=== PATIENT | male | born 1935 | race Caucasian/White ===

== ENCOUNTER 2023-05-09 15:37 | Emergency (ER) | payer OTHER, SELFPAY ==
[2023-05-09 15:39] VITALS: BP 135/71
[2023-05-09 16:12] LABS: % Basophils 0.4 % (0-2); % Eosinophils 1.4 % (0-6); % Immature Granulocytes 0.4 % (0-0.5); % Lymphocytes 20.7 % (20.5-51.1); % Monocytes 14.3 % (1.7-9.3); % Neutrophils 62.8 % (42.2-75.2); Absolute Eosinophils 0.1 10^3/uL (0-0.7); Absolute Lymphocytes 1.7 10^3/uL (1.2-3.4); Absolute Monocytes 1.2 10^3/uL (0.1-0.6); Absolute Neutrophils 5.3 10^3/uL (1.4-6.5); Hematocrit 38.7 % (39.0-52.0); Hemoglobin 13.5 g/dL (13.0-18.0); Mean Corp Hgb Conc. 34.9 g/dL (33.0-37.0); Mean Corpuscular Hgb 32.1 pg (27.0-31.0); Mean Corpuscular Volume 92.1 fL (80.0-94.0); Mean Platelet Volume 9.1 fL (7.4-10.4); Nucleated Red Blood Cells % 0 % (-); Platelet Count 373 10^3/uL (130-400); Red Cell Dist. Width 11.3 % (11.5-14.5); White Blood Cell Count 8.4 10^3/uL (4.8-10.8)
[2023-05-09 16:27] LABS: ALT (SGPT) 17 U/L (0-50); AST (SGOT) 23 U/L (17-59); Albumin 3.7 g/dl (3.5-5.0); Alkaline Phosphatase 194 U/L (38-126); Blood Urea Nitrogen 33 mg/dl (9-20); Calcium 9.1 mg/dl (8.4-10.2); Carbon Dioxide 28 mmol/L (22-30); Chloride 99 mmol/L (98-107); Glucose 122 mg/dl (70-99); Lipase 122 U/L (23-300); Potassium 4.4 mmol/L (3.5-5.1); Sodium 133 mmol/L (135-145); Total Bilirubin 1.4 mg/dl (0.2-1.3); Total Protein 6.9 g/dl (6.3-8.2); eGFR 58.53
[2023-05-09 16:30] LABS: COVID-19 Antigen Negative (Negative)
--- NOTE | 2023-05-09 17:15 | ED.GENMED ---
History of Present Illness
General
Chief Complaint: Weakness
Source: family
Exam Limitations: non verbal-adult
Time Seen by Provider: 05/09/23 16:40
Nursing documentation reviewed up to this point in time: agreed with
Travel History
Have you had any contact with someone who has COVID-19?: No
Do you have any symptoms of coronavirus? Fever > 100 degrees, chills, cough, shortness of breath, sore throat, loss of taste or smell, muscle aches, or headache?: No
History of Present Illness
History of Present Illness:
Patient is an 87-year-old male with a history of MD, cardiac stenting, hypertension, hyperlipidemia, GERD, TIA and expressive aphasia since age 80, patient is mostly nonverbal, can shake his head yes or no but most of the time does write down when
he wants to communicate
Presents after has witnessed him not eating for the last 2 days. She says that all began 3 days ago when she came home from being out and he was pale and laying wrapped in a towel in his bed. She says she has never seen him like that. It
looked as if he was in the shower and came out and lay down. She says he was communicative, opening his eyes and his baseline mental status but he just seemed wiped out. He was not found to have any facial asymmetry or focal weakness. She took
his blood pressure which was okay. She got into our juice and he drank. But then ever since then he really has not wanted to eat. Patient is pretty habitual as far as his eating goes and will eat 3 meals a day, he always has Cheerios, Estonian and
orange juice for breakfast and has had that for 47 years. But he has not wanted to eat that which is very unusual. He has been sleeping more than usual. Otherwise he is his baseline communication which is minimal. He has been able to ambulate.
She tried to get him to drink the Ensure but he is only had some sips. He is never vomited. He asked to go to the doctor today. Patient's says that she thinks may be something happened to him 2 days ago, as if maybe he had a stroke.
He does not seem to be in any pain. He also is not suspected to be constipated though does not seem like it is reliable to asked the patient when the last time he moved his bowels was.
Past History
Past History
ED Past Medical History: HTN, Hypercholesterolemia, MD and Other (Chronic expressive aphasia)
ED Past Surgical History: Cardiac (Stent X1)
Social History
Tobacco: Non-smoker
Alcohol: Occasional
Drug: None
Personal:
Living: with family
Review of Systems
Review of Systems
Allergies reviewed?: Yes
All Other Systems: Not applicable
Phy Exam
Physical Exam
Physical Exam:
GENERAL: Alert , in no apparent distress, nontoxic appearing, pleasant, answers yest to most questions and then shaes head no
HEAD: NCAT
EYE: pupils equal and reactive, no nystagmus, no photophobia
NECK: Supple,full rom, nontender
ENT: o/p clr, mmm.
CARDIAC: Regular rate and rhythm . no edema
LUNGS: Clear breath sounds bilaterally, no acute respiratory distress, no wheezes/rales/rhonchi
ABDOMEN: Soft, without focal tenderness, no r/g, no cvat
NEUROLOGICAL: Alert and orientedx 4, cn intact, no facial asymmetry, 5/5 strength in UE/LE, sensation intact, romberg neg, ambulates without assistance, neg pronator drift
SKIN: Warm and dry, skin intact.
MUSCULOSKELETAL: No edema, well perfused.
PSYCH: Normal and appropriate interaction.
Course
Orders/Labs/Results
Orders:
Orders
05/09/23 15:44
EKG [Electrocardiogram (*1)] Urgent
Reason for Study: Fatigue / Weakness
EKG- Treatment ONCE
05/09/23 15:59
COVID-19 Antigen Urgent
Source: Nasal Swab
Influenza A+B Rapid Molecular Urgent
CHERYL Source: Nasal Swab
Specimen Description:
05/09/23 16:02
CBC/With Diff [Complete Blood Count/With Diff] Urgent
CMP [Comprehensive Metabolic Panel] Urgent
Lipase Urgent
05/09/23 17:10
Add On- LAB Urgent
Tests Added?: lipase
CT Abd/Pel (IV only)-DH only Urgent
Comment:
Reason For Exam: not eating, exp aphasia, cannot communicate
05/09/23 17:11
CT Head W/o Iv Contrast Urgent
Comment: expressive aphasia
Reason For Exam: weak, not eating x 2 days
0.9% Sodium Chloride 1000 ml [Nss] 1,000 ml IV BOLUS
Pantoprazole [Protonix IV] 40 mg IV NOW STA
CR Chest - 2 Views Urgent
Comment:
Reason For Exam: not eating
05/09/23 17:32
Urinalysis Reflex To Culture Urgent
Date Specimen was Collected: 05/09/23
Time Specimen was Collected: 17:30
Urine Microscopic Reflex Cult Urgent
05/09/23 19:04
Ondansetron Injectable [Zofran] 4 mg .ROUTE .STK-MED ONE
05/09/23 19:06
Ondansetron Injectable [Zofran] 4 mg IV NOW STA
Abnormal Lab Results
05/09/23 05/09/23
16:02 17:32
RBC 4.20 L 10^6/uL
(4.70-6.10)
Hct 38.7 L %
(39.0-52.0)
MCH 32.1 H pg
(27.0-31.0)
RDW 11.3 L %
(11.5-14.5)
Absolute Monos (auto) 1.2 H 10^3/uL
(0.1-0.6)
Monocytes % 14.3 H %
(1.7-9.3)
Sodium 133 L mmol/L
(135-145)
BUN 33 H mg/dl
(9-20)
Glucose 122 H mg/dl
(70-99)
Total Bilirubin 1.4 H mg/dl
(0.2-1.3)
Alkaline Phosphatase 194 H U/L
(38-126)
Urine Ketones Trace A
(Negative)
Ur Occult Blood Reflex Trace A
(Negative)
Leukocyte Esterase Rfl Trace A
(Negative)
Urine Bacteria (Reflex) Few A
(Negative)
05/09/23 16:02
05/09/23 16:02
Vital Signs
Initial and Last Documented VS:
Initial Vital Signs
Temp Pulse Resp BP Pulse Ox
98.2 F 102 18 135/71 97
05/09/23 15:39 05/09/23 15:39 05/09/23 15:39 05/09/23 15:39 05/09/23 15:39
Last Documented Vital Signs
Temp Pulse Resp BP Pulse Ox
98.2 F 68 16 125/89 98
05/09/23 15:39 05/09/23 19:30 05/09/23 19:30 05/09/23 18:44 05/09/23 19:30
MDM/Problems Addressed
Differential Diagnosis Includes:
uti, stroke, gastritis, gastroenteritis
MDM/Problems Addressed:
87 y/o M with h/o aphasia, cad
here with who says that 2 days ago he looked pale and weak for a few hours before recovering but has not wanted to eat, and has been sleeping more htna normal
otherwise he has been his baseline
no fver, vomiting, diarrhea, consitpaitno, rectal bleeding, falls
on exam pt is poor historian because of his aphasia
he seems to understand most questions but often times confuses answers, changes from yes to no
he seems in no pain
no abdominal tenderness
no focal neuro findings
w/u here shows a very equivocal UA, not really concerning for UTI
mildly dry, elevated BUN
rectal HEME NEG
wbc normal
head ct neg
abd/pelvis ct with some nonsepcific finginds, could be enteritis; has compression fx
copy of report to
woul dlike to take him home
he was offered admission because o fhis age and poor reliability because of his aphasia/dementia
he was given fluids and zofran and was able to eat applesauce after
she would prefer d/c home.
d/c home with #2 tabs zofran
*Critical Care Note
Total Time (30-74mins, 75-104mins- exclusive of procedures): Not Applicable
ED Attending Note
-
Portions of this chart may have been created with voice recognition software.� Occasional wrong word or��sound alike� substitutions may have occurred due to the inherent limitations of voice recognition software.
Discharge Plan
Departure
Patient Disposition: Home (Routine Discharge)
Date of Disposition: 05/09/23
Time of Disposition: 19:56
Patient with high blood pressure during this ER visit?: No
Condition: Fair
Covid-19: Not Applicable
Discharge Problem:
Lack of appetite, Nausea
Instructions: Nausea and Vomiting, Adult (DC)
Prescriptions:
New
ondansetron 4 mg tablet,disintegrating
4 mg PO Q8H PRN (Reason: nausea and vomiting) 1 Days Qty: 2 0RF
No Action
aspirin 81 MG tablet,delayed release (DR/EC)
81 mg PO DAILY
ramipril 10 MG capsule
10 mg PO DAILY
atorvastatin 20 MG tablet
20 mg PO HS
famotidine 20 MG tablet
20 mg PO HS
cholecalciferol (vitamin D3) 1,000 UNITS tablet
1,000 units PO HS
citalopram [Celexa] 20 mg Tablet
20 mg PO DAILY
tamsulosin [Flomax] 0.4 mg Capsule
0.4 mg PO HS
Referrals:
Ghanshyam Granda MD [Family Provider] - Follow up in 2-3 days
Activity Restrictions/Additional Instructions:
WE ARE NOT SURE THE CAUSE OF YOUR NAUSEA.
YOUR BLOOD WORK SHOWED YOU WERE MILDLY DEHYDRATED
YOUR CAT SCAN REPORT WAS GIVEN TO YOU
THIS COULD BE A VIRUS
MAKE SURE TO SEE YOUR DOCTOR IF THIS CONTINUES
YOUR URINE CULTURE IS PENDING WE WILL CALL IF YOU NEED AN ANTIBIOTIC
RETURN FOR: FEVER, CONFUSION, VOMITING, CHEST PAIN, URINARY SYMPTOMS OR ANY CONCERNS.
Interventions
Interventions:
*Risk Screen - Suicide Last Done: 05/09/23 17:19
*General Assessment Last Done: 05/09/23 15:43
*Neglect/Abuse Screening Last Done: 05/09/23 17:19
ED- Fall Risk Assessment Last Done: 05/09/23 17:19
*ED COVID-19 Vaccine History Last Done: 05/09/23 15:43
*Nursing Disposition Last Done: 05/09/23 20:06
ED- Cardiac Assessment Last Done: 05/09/23 17:19
ED- Neurological Assessment Last Done: 05/09/23 17:19
ED- Pulmonary Assessment Last Done: 05/09/23 17:19
Discharge Date and Time
Discharge Date/Time: 05/09/23 20:06
[2023-05-09 17:30] VITALS: BP 126/61
[2023-05-09] MEDS: NSS 1000 IV (17:39)
[2023-05-09] MEDS: PROTONIX IV 40 MG IV (17:39)
[2023-05-09 17:49] LABS: Urine Albumin Negative (Neg - Trace); Urine Bilirubin Negative (Negative); Urine Character Clear (Clear); Urine Color Yellow; Urine Glucose Negative (Negative); Urine Ketone Trace (Negative); Urine Leukocyte Trace (Negative); Urine Nitrite Negative (Negative); Urine Occult Blood Trace (Negative); Urine Urobilinogen Negative (Neg - 1+)
[2023-05-09 17:56] LABS: Urine Squamous Cell 0-2 /LPF (Few)
[2023-05-09 17:57] LABS: Urine Red Blood Cell 0-2 /HPF (0-2); Urine White Cell 0-2 /HPF (0-5)
[2023-05-09 17:59] LABS: Urine Bacteria Few (Negative)
[2023-05-09 18:44] VITALS: BP 125/89
[2023-05-09] MEDS: ZOFRAN 4 MG IV (19:07)
== END 2023-05-09 20:06 | disposition home or self-care (01) ==
LOC: EMR 15:37
PROVIDERS: Physician Assistant; EMERGENCY PHYSICIAN Emergency Medicine; FAMILY PHYSICIAN Family Medicine
DX: R53.1 Weakness (principal); I25.2 Old myocardial infarction; I10 Essential (primary) hypertension; E78.00 Pure hypercholesterolemia, unspecified; K21.9 Gastro-esophageal reflux disease without esophagitis; F03.90 Unspecified dementia, unspecified severity, without behavioral disturbance, psychotic disturbance, mood disturbance, and anxiety; I25.10 Atherosclerotic heart disease of native coronary artery without angina pectoris; Z86.73 Personal history of transient ischemic attack (TIA), and cerebral infarction without residual deficits; Z95.5 Presence of coronary angioplasty implant and graft
CPT/HCPCS: 99284; 96374; 96375; 96361; 70450; 71046; 74177; 80053; 81003; 81015; 83690; 85025; 87086; 87502; 87811; 93005; Q9967

== ENCOUNTER → 2023-05-15 08:47 | Outpatient (REF) | payer OTHER, SELFPAY | LOC: RAD 08:47 | PROVIDERS: ATTENDING PHYSICIAN Family Medicine | DX: R63.0 Anorexia (principal); R63.4 Abnormal weight loss | CPT/HCPCS: 74246 ==

== ENCOUNTER 2023-05-16 18:44 | Inpatient (IN) | payer OTHER, SELFPAY ==
[2023-05-16] VITALS (12 sets, daily range): BP systolic 108–149; BP diastolic 59–98; BMI 20.7
--- NOTE | 2023-05-16 16:12 | ED.GENMED ---
History of Present Illness
General
Chief Complaint: Abdominal Symptoms
Source: spouse
Exam Limitations: other (Patient nonverbal with expressive aphasia as per )
Time Seen by Provider: 05/16/23 15:47
Travel History
Have you had any contact with someone who has COVID-19?: No
Do you have any symptoms of coronavirus? Fever > 100 degrees, chills, cough, shortness of breath, sore throat, loss of taste or smell, muscle aches, or headache?: No
History of Present Illness
History of Present Illness:
Patient is an 87 old male with known expressive aphasia apraxia CAD hypertension hyperlipidemia RI with stent reflux presents to the ER for evaluation. reports patient started to not be able to eat several weeks ago. She reports he has lost
around 20 pounds since the beginning of April. she reports he was seen here last week May 08. She reports at that time he was evaluated for not eating however she also had found him slumped over the bed and brought him to the ER for evaluation.
Patient had full workup including blood work and CAT scan. CAT scan showed nonspecific findings, no intestinal obstruction or free air cannot exclude a minor enteritis limited contracted gallbladder but no biliary dilatation, moderate size hiatal
hernia and a least a large prostate.
reports they followed up with PCP for continued evaluation of patient not eating. They were sent for upper GI study yesterday however study was limited because patient had apparently aspirated the barium there was a large hiatal hernia
visualized and no obvious abnormalities in the esophagus however the study was terminated because the large amount of aspiration of barium.
She is concerned because patient again today was very weak and after shower had to get down to his knees and lay on his bed because of weakness.
She is concerned because of continued difficulty eating. She reports he will not drink barely will eat.
she reports patient seems a little confused.
Past History
Past History
ED Past Medical History: HTN, Hypercholesterolemia, RI and Other (Chronic expressive aphasia)
ED Past Surgical History: Cardiac (Stent X1)
Social History
Tobacco: Non-smoker
Alcohol: Occasional
Drug: None
Personal:
Living: with family
Review of Systems
Review of Systems
Allergies reviewed?: Yes
Other source history: family
Constitutional: Reports weight loss
EENT: Reports no symptoms
Respiratory: Reports no symptoms
Cardiac: Reports no symptoms
ABD/GI: Reports other (difficulty eating )
: Reports no symptoms
Musculoskeletal: Reports no symptoms
Skin: Reports no symptoms
Psychiatric: Reports no symptoms
Phy Exam
General Physical Exam
General Presentation: no apparent distress
General age: appears stated age
General Skin: warm and dry
General Habitus: elderly
General Mental: alert
General Hydration: dry mucous membranes
Cardiovascular Exam
Cardiovascular Exam: regular rate/rhythm, no murmur and normal peripheral pulses
Pulmonary Exam
Pulmonary Exam: lungs clear and no respiratory distress
Neurological Exam
Neurological Exam: alert and other (Expressive aphasia not able to vocalize)
Musculoskeletal Exam
Musculoskeletal Exam: full ROM
Skin Exam
Skin Exam: normal color and warm/dry
Psychiatric Exam
Psychiatric Exam: normal mood/affect
Course
Orders/Labs/Results
Orders:
Orders
05/16/23 Dinner
Regular
At Your Request: Full Participation
Oral Supplement (If unsure of flavor order apple or vanilla): Ensure Enlive Chocolate
Supplement Frequency: Daily
05/16/23 15:58
Cardiac Monitoring- Treatment ONCE
IV Insert/Care/Rem.- Treatment PRN
05/16/23 16:20
Complete Blood Count/With Diff Urgent
Comprehensive Metabolic Panel Urgent
Lipase Urgent
Urinalysis Reflex To Culture Urgent
Date Specimen was Collected: 05/16/23
Time Specimen was Collected: 16:15
Urine Microscopic Reflex Cult Urgent
0.9% Sodium Chloride 500 ml [Nss] 500 ml IV BOLUS
Chest [CR Chest - 2 Views ] Urgent
Comment:
Reason For Exam: aspiration yesterday
05/16/23 17:29
Electrocardiogram (*1) Stat
Reason for Study: Other
Other Reason for Exam: chest pain
05/16/23 18:25
Admit/Transfer Patient As Directed
Co-Sign Provider:
Level of Care: Inpatient admission
Assign to:: Medical/Surgical
Physician / Group: hospitalist-Rayne
Diagnosis: weight loss
Reason for Hospitalization: needs GI workup, IVF, dehydration
Expected length of stay greater than two midnights?: Yes
ELOS- Estimated Length of Stay in days: 3
I certify the patient meets the requirements for IP care: Yes
Other Reason for Overnight Stay: pt needs room so can stay--has aphasia
05/16/23 18:27
Code Status As Directed
Resuscitation Status: Full Code
05/16/23 23:45
0.9% Sodium Chloride 1000 ml [Nss] 1,000 ml IV 75 mls/hr
Acetaminophen [Tylenol] 650 mg PO Q4HPRN PRN
Atorvastatin [Lipitor] 20 mg PO HS
Cholecalciferol (Vitamin D3) [VITAMIN D3 (cholecalciferol)] 25 mcg PO HS
Famotidine [Pepcid] 20 mg PO HS
Ondansetron Injectable [Zofran] 4 mg IV Q6HPRN PRN
Tamsulosin [Flomax] 0.4 mg PO HS
05/16/23 23:45
GASTROINTESTINAL CONSULT Routine
Consulting Provider: Mena López
Was physician already notified: Yes
Activity As Directed
Activity Level: Out of Bed-Early Mobility
Vital Signs As Directed
Frequency: Per unit guidelines
Ot Eval And Treat Routine
Pt Eval And Treat Routine
Activity Level: Out of Bed-Early Mobility
Speech Therapy Eval & Treat Routine
DX Deep Vein Thrombosis Video Routine
05/17/23 03:53
Complete Blood Count/With Diff IN AM
Comprehensive Metabolic Panel IN AM
Magnesium IN AM
TSH IN AM
Vitamin B12 IN AM
05/17/23 08:00
Aspirin Low Dose EC [Aspir Low (Enteric Coated)] 81 mg PO DAILY
Citalopram [Celexa] 20 mg PO DAILY
Ramipril [Altace] 10 mg PO DAILY
05/17/23 18:00
Enoxaparin Sodium [Lovenox] 40 mg SC QPM
Abnormal Lab Results
05/16/23
16:20
RBC 4.02 L 10^6/uL
(4.70-6.10)
Hgb 12.8 L g/dL
(13.0-18.0)
Hct 36.8 L %
(39.0-52.0)
MCH 31.8 H pg
(27.0-31.0)
RDW 11.2 L %
(11.5-14.5)
Absolute Monos (auto) 1.1 H 10^3/uL
(0.1-0.6)
Lymphocytes % 18.4 L %
(20.5-51.1)
Monocytes % 13.5 H %
(1.7-9.3)
Chloride 97 L mmol/L
(98-107)
BUN 32 H mg/dl
(9-20)
Glucose 132 H mg/dl
(70-99)
Alkaline Phosphatase 178 H U/L
(38-126)
Urine Ketones Trace A
(Negative)
Ur Occult Blood Reflex Trace A
(Negative)
05/16/23 16:20
05/16/23 16:20
Vital Signs
Initial and Last Documented VS:
Initial Vital Signs
Temp Pulse Resp BP Pulse Ox
97.7 F 116 18 135/79 96
05/16/23 15:16 05/16/23 15:16 05/16/23 15:16 05/16/23 15:16 05/16/23 15:16
Last Documented Vital Signs
Temp Pulse Resp BP Pulse Ox
99.9 F 86 18 127/63 97
05/18/23 07:29 05/18/23 08:36 05/18/23 07:29 05/18/23 08:36 05/18/23 08:05
MDM/Problems Addressed
Differential Diagnosis Includes:
Not limited to dehydration, dysphagia, failure to thrive, aspiration
MDM/Problems Addressed:
As documented patient is a 87-year-old male with expressive aphasia for the past several years who has not been eating and has been losing weight. Patient was seen here in May 08 had a complete workup /CAT scan and was followed up by family
doctor. Patient had an outpatient upper GI series with barium however patient aspirated barium and test was not completed. reports patient continues to not drink barely able to eat and today seems very weak. She reports he was not able to
get a shower today because of being weak.
Patient presents awake alert he is intermittently writing things down but seems a little confused with conversation.
reports no recent fevers and patient is afebrile here stable vital signs white count normal at 7.9 stable hemoglobin 12.8 BUN is 32. Patient was given fluids. Will check urinalysis. Chest x-ray negative
*Radiology
Radiology exam reviewed: radiology read reviewed
*Pulse Oximetry
Patient hypoxic: no
*Critical Care Note
Total Time (30-74mins, 75-104mins- exclusive of procedures): Not Applicable
ED Attending Note
-
Portions of this chart may have been created with voice recognition software.� Occasional wrong word or��sound alike� substitutions may have occurred due to the inherent limitations of voice recognition software.
Discharge Plan
Departure
Patient Disposition: Admit
Date of Disposition: 05/16/23
Time of Disposition: 17:37
Admit to: Med/Surg
Admit to doctor: hospitalist
Presentation/result/management discussed w/ accepting MD/DO: Hospitalist
Patient with high blood pressure during this ER visit?: Yes
Condition: Fair
Covid-19: Not Applicable
Discharge Problem:
Acute dehydration, Fatigue
Interventions
Interventions:
*Risk Screen - Suicide Last Done: 05/16/23 15:16
*General Assessment Last Done: 05/16/23 15:16
*Neglect/Abuse Screening Last Done: 05/16/23 15:16
ED- Fall Risk Assessment Last Done: 05/16/23 16:41
*ED COVID-19 Vaccine History Last Done: 05/16/23 23:52
*Nursing Disposition Last Done: 05/16/23 23:50
YW-Stifrk-Pxijdzyxza Assessment Last Done: 05/16/23 16:41
Discharge Date and Time
Discharge Date/Time: 05/16/23 23:51
[2023-05-16] MEDS: NSS 500 IV (16:25)
[2023-05-16 16:39] LABS: % Basophils 0.3 % (0-2); % Eosinophils 1.8 % (0-6); % Immature Granulocytes 0.3 % (0-0.5); % Lymphocytes 18.4 % (20.5-51.1); % Monocytes 13.5 % (1.7-9.3); % Neutrophils 65.7 % (42.2-75.2); Absolute Eosinophils 0.1 10^3/uL (0-0.7); Absolute Lymphocytes 1.5 10^3/uL (1.2-3.4); Absolute Monocytes 1.1 10^3/uL (0.1-0.6); Absolute Neutrophils 5.2 10^3/uL (1.4-6.5); Hematocrit 36.8 % (39.0-52.0); Hemoglobin 12.8 g/dL (13.0-18.0); Mean Corp Hgb Conc. 34.8 g/dL (33.0-37.0); Mean Corpuscular Hgb 31.8 pg (27.0-31.0); Mean Corpuscular Volume 91.5 fL (80.0-94.0); Mean Platelet Volume 9.4 fL (7.4-10.4); Nucleated Red Blood Cells % 0 % (-); Platelet Count 327 10^3/uL (130-400); Red Blood Cell Count 4.02 10^6/uL (4.70-6.10); Red Cell Dist. Width 11.2 % (11.5-14.5); White Blood Cell Count 7.9 10^3/uL (4.8-10.8)
[2023-05-16 16:46] LABS: ALT (SGPT) 19 U/L (0-50); AST (SGOT) 23 U/L (17-59); Albumin 3.6 g/dl (3.5-5.0); Alkaline Phosphatase 178 U/L (38-126); Blood Urea Nitrogen 32 mg/dl (9-20); Calcium 9.5 mg/dl (8.4-10.2); Carbon Dioxide 29 mmol/L (22-30); Chloride 97 mmol/L (98-107); Glucose 132 mg/dl (70-99); Potassium 4.2 mmol/L (3.5-5.1); Sodium 135 mmol/L (135-145); Total Bilirubin 0.9 mg/dl (0.2-1.3); Total Protein 6.6 g/dl (6.3-8.2); eGFR > 60.00
[2023-05-16 16:56] LABS: Lipase 129 U/L (23-300)
[2023-05-16 18:31] LABS: Urine Albumin Negative (Neg - Trace); Urine Bilirubin Negative (Negative); Urine Character Clear (Clear); Urine Color Yellow; Urine Glucose Negative (Negative); Urine Ketone Trace (Negative); Urine Leukocyte Negative (Negative); Urine Nitrite Negative (Negative); Urine Occult Blood Trace (Negative); Urine Urobilinogen Negative (Neg - 1+)
--- NOTE | 2023-05-16 18:33 | HPS.HSE ---
Family Physician
-
Family Physician: Ghanshyam Granda
Chief Complaint
-
Weight loss difficulty eating
History of Present Illness
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
hyperlipidemia, benign prostatic hyperplasia, pacemaker who has had 20 pound weight loss over the past 3 weeks. Patient's states that he is normally 171 to 172 pounds for the last 50 years. Starting beginning of May, end of April,
patient has not really been eating well and started 'cutting back' on his food intake. Whereas before he would eat a whole sandwich, then he started eating half. He has progressed to the point where he is eating ice cream only as everything else
makes him nauseous. He has not vomited. Because of this he is also globally weak. He has seen his primary care physician who ordered an upper GI series. Patient aspirated on this and the study was limited. However, based on my review of the
study, there were no abnormalities of the esophagus. Patient is being admitted.
Medical History
Past Medical History
Past Medical History: Reports Other
Additional Past Medical History:
Expressive aphasia
Essential hypertension
Hyperlipidemia
Pacemaker placement
Benign prostatic hyperplasia
Transient global amnesia
Hiatal hernia
Past Surgical History: Reports Other
Additional Past Surgical History:
Pacemaker placement
Social History
Tobacco: Non-smoker
Alcohol: None
Drug: None
Personal:
Living: With Family
Family History
Family History: Not pertinent
Allergies / Home Medications
Allergies reflects when Allergies were last updated in [facility].
Home Medications with original date entered in [facility]
Allergy/Medication List:
Allergies
Allergy/AdvReac Type Severity Reaction Status Date / Time
No Known Allergies Allergy Verified 05/09/23 15:44
Home Medications
aspirin 81 mg tablet,delayed release 81 mg PO DAILY 08/29/11
ramipril 10 mg capsule 10 mg PO DAILY 08/29/11
atorvastatin 20 mg tablet 20 mg PO HS 08/29/16
cholecalciferol (vitamin D3) 25 mcg (1,000 unit) tablet 1,000 units PO HS 05/15/19
famotidine 20 mg tablet 20 mg PO HS 05/15/19
citalopram 20 mg tablet (Celexa) 20 mg PO DAILY 05/09/23
tamsulosin 0.4 mg capsule (Flomax) 0.4 mg PO HS 05/09/23
Review of Systems
-
History Source: Patient and Family
A 12 point ROS was completed and negative except as noted: Yes
Constitutional: Reports Weight Loss and Fatigue; Denies Fever, Weight Gain or Night Sweats
EENT: Reports No Symptoms
Respiratory: Reports No Symptoms; Denies Cough, Hemoptysis or Trouble Breathing
Cardiac: Reports No Symptoms; Denies Chest Pain, Diaphoresis or Palpitations
Abdomen/GI: Reports Nausea; Denies Abdominal Pain, Vomiting, Diarrhea or Constipated
: Reports No Symptoms
Musculoskeletal: Reports No Symptoms
Skin: Reports No Symptoms
Neurological: Reports Dizzy; Denies Headache, Weakness or Numbness
Endocrine: Reports No Symptoms
Hematologic/Lymphatic: Reports No Symptoms
Psych: Reports No Symptoms
Physical Exam
Vital Signs
Vital Signs
Temp Pulse Resp BP Pulse Ox
97.7 F 99 16 135/98 96
05/16/23 15:16 05/16/23 18:00 05/16/23 18:00 05/16/23 18:00 05/16/23 17:45
Physical Exam
General: Appears Chronically Ill and Cachectic
HEENT: NormoCephalic, Anicteric and Atraumatic; No Oxygen
Respiratory: Clear; No Wheezes, Rales, Rhonchi or Crackles
Cardiac: S1/S2 and Regular Rhythm; No Murmur
GI: Soft, Non Tender, Non Distended and Normal Bowel Sounds
Musculoskeletal: No Clubbing, No Cyanosis and No Edema
Skin: Warm
Neuro: Awake
Psych: Calm
Laboratory Results
-
05/16/23 16:20
05/16/23 16:20
Laboratory Results
Total Bilirubin 0.9 mg/dl (0.2-1.3) 05/16/23 16:20
AST 23 U/L (17-59) 05/16/23 16:20
ALT 19 U/L (0-50) 05/16/23 16:20
Alkaline Phosphatase 178 U/L (38-126) H 05/16/23 16:20
Lipase 129 U/L (23-300) 05/16/23 16:20
Impression/Plan
-
Patient is an 87-year-old male
Weight loss/failure to thrive--unclear what is driving this--perhaps aspiration as upper GI did indicate that--perhaps occult malignancy--perhaps thyroid dysfunction--ADMIT--consult GI, consult speech--IV fluids, diet as tolerated--continue
Pepcid--CAT scan of the abdomen pelvis was done on May 08 without significant issues, CAT scan of his brain was done May 08 which showed atrophy--check TSH, vitamin B12
Weakness--due to above--PT/OT
Essential hypertension --continue ramipril as able
Hyperlipidemia --continue toward statin as able
Benign prostatic hyperplasia--continue Flomax
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
DVT prophylaxis
CODE STATUS--full code
[2023-05-16 18:52] LABS: Urine Red Blood Cell 0-2 /HPF (0-2); Urine Squamous Cell 0-2 /LPF (Few); Urine White Cell None Seen /HPF (0-5)
--- NOTE | 2023-05-16 23:45 | PTCARENOTE ---
Pt arrived to unit via stretcher. Pt ambulated assist x 1 to the bathroom, then bed. Pt's at bedside. Pt AAOx3 - communicates via board, as pt is aphasic. Can answer yes and no questions appropriately. Pt passed swallow test, but had big gulps.
Outpt swallow test shows aspiration. Ordered regular diet. Pending speech consult. Lungs clear - coarse. Pt and oriented to room.
[2023-05-17] MEDS: FLOMAX PO (00:45)
[2023-05-17] MEDS: LIPITOR PO (00:45)
[2023-05-17] MEDS: PEPCID PO (00:45)
[2023-05-17] MEDS: VITAMIN D3 (cholecalciferol) PO (00:52)
[2023-05-17] MEDS: NSS 1000 IV ×2 (00:53→13:29)
[2023-05-17 05:08] LABS: % Basophils 0.3 % (0-2); % Eosinophils 4.2 % (0-6); % Immature Granulocytes 0.2 % (0-0.5); % Lymphocytes 25.6 % (20.5-51.1); % Monocytes 12.7 % (1.7-9.3); Absolute Eosinophils 0.4 10^3/uL (0-0.7); Absolute Lymphocytes 2.2 10^3/uL (1.2-3.4); Absolute Monocytes 1.1 10^3/uL (0.1-0.6); Absolute Neutrophils 4.9 10^3/uL (1.4-6.5); Hematocrit 35.6 % (39.0-52.0); Hemoglobin 12.1 g/dL (13.0-18.0); Mean Corpuscular Hgb 31.7 pg (27.0-31.0); Mean Corpuscular Volume 93.2 fL (80.0-94.0); Mean Platelet Volume 9.5 fL (7.4-10.4); Nucleated Red Blood Cells % 0 % (-); Platelet Count 305 10^3/uL (130-400); Red Blood Cell Count 3.82 10^6/uL (4.70-6.10); Red Cell Dist. Width 11.2 % (11.5-14.5); White Blood Cell Count 8.7 10^3/uL (4.8-10.8)
[2023-05-17 05:44] LABS: ALT (SGPT) 15 U/L (0-50); AST (SGOT) 23 U/L (17-59); Alkaline Phosphatase 160 U/L (38-126); Blood Urea Nitrogen 21 mg/dl (9-20); Calcium 8.6 mg/dl (8.4-10.2); Carbon Dioxide 30 mmol/L (22-30); Chloride 103 mmol/L (98-107); Estimated Creatinine Clearance 57 ml/min; Glucose 90 mg/dl (70-99); Potassium 3.9 mmol/L (3.5-5.1); Sodium 136 mmol/L (135-145); Total Protein 5.7 g/dl (6.3-8.2); eGFR > 60.00
[2023-05-17 06:10] LABS: TSH < 0.02 uIU/ml (0.47-4.68)
[2023-05-17 06:29] LABS: Vitamin B12 577 pg/ml (239-931)
--- NOTE | 2023-05-17 06:53 | CON.GI ---
Addendum entered and electronically signed by Mena López DO 05/17/23 14:01:
Patient seen and examined independently of JONATHAN. I agree with her note with my additions below
Esteban is an 87-year-old male with history of AK status post stent, pacemaker, apraxia, hypertension who was brought in by his retired nurse for 20 pound weight loss within the last 5 weeks. Somewhat of a difficult historian due to his
aphasia. His says he is regimented and eats the same food every day. He has been eating less with some questionable nausea. No vomiting. Denies any abdominal pain. Denies urinary symptoms. Patient had an upper GI series that was aborted
after he had some aspiration. The esophagus appeared normal other than a large hiatal hernia. At home he takes 1 famotidine daily. He is not on a PPI. He is on aspirin daily. Unclear if he has any dysphagia but not according to the .
Patient is supposed to be taking a stool softener daily. Had some mild constipation a couple of days before admission but otherwise states having normal bowel movements. Today he is eating well. Had multiple chicken fingers and Tajik fries. He
looks comfortable.
According to labs he has had a chronic elevation of his alkaline phosphatase for decades. He has [place] with a mildly elevated total bilirubin at 1.4. Otherwise normal ALT and AST. Normal GGT 20, low TSH 0.02 with a high T4 of 16.2, normal
lipase, normal vitamin B12. BUN on admission was 32 now down to 21
CT scan abdomen pelvis with IV contrast only was markedly limited for multiple reasons. Shows a marked L2 vertebral compression fracture, no focal abnormality of the liver, spleen, atrophic pancreas, adrenal glands kidneys. Gallbladder is
contracted. No ductal dilatation. Small scattered colonic stool. Some fluid seen in several nondistended loops of small bowel. Moderate hiatal hernia
Upper GI series was limited because of some aspiration but shows a normal-appearing esophagus and a large hiatal hernia
Overall, 20 pound weight loss over the past 5 weeks with no significant findings on imaging other than a large hiatal hernia, scattered colonic stool who on labs appears to have questionable new hyperthyroidism with a low TSH and high T4, not on PPI
# Weight loss, unintentional -
-- Depression versus pathology -concern for hyperthyroidism with low TSH and high T4 which can cause weight loss
--In the setting of his large hiatal hernia would not be surprised if he has significant Ozzy ulcerations and reflux -instead of the H2 mainor, exchanged it for a PPI. To be taken 30 minutes before his first meal
--Keep bowels moving well with a daily stool softener
--If weight continues to come off would proceed to outpatient endoscopy
--Follow-up in 1 month in our office with a nurse practitioner
--Please call back with any questions
Original Note:
Consultation
-
Date/Time Consultation Requested: 05/16/232344
Date/Time Consultation Performed: 05/17/23829
Requesting Provider: Faith Mclain MD
Performing Provider: JONATHAN Osei, Mena López DO
Reason for Consultation: weight loss/ nausea
Medical History
Chief Complaint / HPI
Chief Complaint: wt loss, decreased appetite
History of Present Illness:
Pt is a 87yo with hx AK with prior stent, pacer, apraxia, HTN, Gilbert's, chronic alk phos elevations in past, inguinal hernia repair with decreased appetite and wt loss. Pt was in ER 3/ with similar symptoms. During first visit he was noted
with stable labs with some bili and alk phos elevation but that has been chronic. he completed CT A/p with some limitation contracted gallbladder enteritis not excluded moderate HH, comp fracture with L2 hemangioma as well as bony sclerotic lesions
such as blastic lesions note excluded. CXR with HH and HCT with cortical and cerebellar atrophy. He was discharged but has persistent symptoms. He went 05/14 for UGI with limitation but aspiration of barium and large HH, esophagus appears normal.
05/15 CXR stable. In reviewing with patient very routine with same breakfast and weight for years. He began with decrease amount of eating about 05/04 then had episode of now feeling well after shower on 05/06. Pt baseline weight was 171 for
years now down to 152lbs with inability to eat except ice cream and yogurt . Interestingly pt was feeling better last PM after hydration and ate chicken nuggets for dinner and now asking for breakfast.
Pt with chronic expressive aphasia and admits to nausea since 05/04. He did have constipation but has prunes and stool yesterday. He denies dysphagia, GERD, vomiting, abdominal pain, diarrhea, or rectal bleeding. No hx EGD but colonoscopy
recalls as normal at age 80. last report noted [address] Mccracken, hemorrhoid, diverticulosis.
Past Medical History
Past Medical History: CVA (TIA), GERD, HTN, Hypercholesterolemia and Other (speech apraxia, vitamin D deficiency, MRSA 2008, hx elevated alk phos, Gilbert's, hiatal hernia )
Past Surgical History: Cardiac (stent, pacer), Tonsilectomy and Other (right inguinal hernia repair)
Social History
Tobacco: Non-Smoker
Alcohol: None
Drug: None
Personal:
Living: With Family
Employment: Retired
Family History
Family History: Other (no family hx colon CA or polyps)
Allergies / Home Medications
Allergy/AdvReac Type Severity Reaction Status Date / Time
No Known Allergies Allergy Verified 05/09/23 15:44
Medication Instructions Recorded
aspirin 81 mg tablet,delayed 81 mg PO DAILY 08/29/11
release
ramipril 10 mg capsule 10 mg PO DAILY 08/29/11
atorvastatin 20 mg tablet 20 mg PO HS 08/29/16
cholecalciferol (vitamin D3) 25 1,000 units PO HS 05/15/19
mcg (1,000 unit) tablet
famotidine 20 mg tablet 20 mg PO HS 05/15/19
citalopram 20 mg tablet (Celexa) 20 mg PO DAILY 05/09/23
tamsulosin 0.4 mg capsule (Flomax) 0.4 mg PO HS 05/09/23
Review of Systems
-
History Source: Patient and Family
Constitutional: Reports Weight Loss (20 lbs 2 weeks ) and Fatigue
EENT: Reports No Symptoms
Respiratory: Reports No Symptoms
Cardiac: Reports No Symptoms
Abdomen/GI: Reports Nausea and Constipated
: Reports No Symptoms
Musculoskeletal: Reports No Symptoms
Skin: Reports No Symptoms
Neurological: Reports Weakness and Other (speech difficulty )
Endocrine: Reports No Symptoms
Hematologic/Lymphatic: Reports No Symptoms
Vital Signs
Temp Pulse Resp BP Pulse Ox
97.7 F 91 18 149/74 97
05/16/23 23:52 05/16/23 23:52 05/16/23 23:52 05/16/23 23:52 05/16/23 23:52
Physical Exam
Exam
General: Well Developed, Well Nourished and No Apparent Distress
HEENT: Normocephalic and Anicteric
Respiratory: Clear
Cardiac: Regular Rhythm
GI: Soft, Non Tender and Non Distended
Musculoskeletal: No Clubbing and No Cyanosis
Skin: Warm and Dry
Neuro: Awake, Alert and Other (speech difficulty but seem to comprehend all conversation)
Psych: Calm
Results
WBC 8.7 10^3/uL (4.8-10.8) 05/17/23 03:53
Hgb 12.1 g/dL (13.0-18.0) L 05/17/23 03:53
Hct 35.6 % (39.0-52.0) L 05/17/23 03:53
MCV 93.2 fL (80.0-94.0) 05/17/23 03:53
Plt Count 305 10^3/uL (130-400) 05/17/23 03:53
Absolute Neuts (auto) 4.9 10^3/uL (1.4-6.5) 05/17/23 03:53
Sodium 136 mmol/L (135-145) 05/17/23 03:53
Potassium 3.9 mmol/L (3.5-5.1) 05/17/23 03:53
Chloride 103 mmol/L (98-107) 05/17/23 03:53
Carbon Dioxide 30 mmol/L (22-30) 05/17/23 03:53
BUN 21 mg/dl (9-20) H 05/17/23 03:53
Creatinine 0.9 mg/dL (0.7-1.3) 05/17/23 03:53
Calcium 8.6 mg/dl (8.4-10.2) 05/17/23 03:53
Total Bilirubin 1.0 mg/dl (0.2-1.3) 05/17/23 03:53
AST 23 U/L (17-59) 05/17/23 03:53
ALT 15 U/L (0-50) 05/17/23 03:53
Alkaline Phosphatase 160 U/L (38-126) H 05/17/23 03:53
Lipase 129 U/L (23-300) 05/16/23 16:20
Diagnostic Image Results:
05/09/23 CT Abd/Pel (IV only)-[facility]
Markedly limited study as a result of several factors
No intestinal obstruction or free air. Fluid within some nondilated loops of small bowel, nonspecific, cannot exclude minor enteritis.
Limited, contracted gallbladder. No findings to suggest biliary tract dilatation.
At least moderate size hiatal hernia.
Small stone layering in the posterior urinary bladder.
At least mildly enlarged prostate.2
Likely chronic partial L2 and possible minor chronic L3 vertebral compression fractures with changes of the L2 vertebral body possibly representing hemangioma as well as some bony sclerosis at the L2 and L3 vertebral levels. Although the sclerosis
may in part be related to old compression fractures and degenerative changes, additional more aggressive etiology such as osteoblastic bony metastatic disease cannot be excluded
05/09/23 CXR No acute cardiopulmonary process.
Hiatal hernia.
05/09/23 CT head
No acute intracranial abnormality.
Diffuse cortical and cerebellar atrophy again suspected.
05/15/23 UGI
Limited study demonstrating:
-Moderate subglottic aspiration of the barium
-Large hiatal hernia
-No architectural abnormalities in the esophagus
05/16/23 CXR
No acute cardiopulmonary process.
Prior GI Procedures:
EGD: none
Colonoscopy: per around age 80 normal, last [facility] 2000 Dr. Mccracken hemorrhoids, diverticulosis
Assessment / Plan
-
Pt is a 87yo with hx AK with prior stent, pacer, apraxia, HTN, Gilbert's, chronic alk phos elevations in past, inguinal hernia repair with decreased appetite and wt loss. Pt was in ER 05/08 with similar symptoms. During first visit he was noted
with stable labs with some bili and alk phos elevation but that has been chronic. he completed CT A/p with some limitation contracted gallbladder enteritis not excluded moderate HH, comp fracture with L2 hemangioma as well as bony sclerotic lesions
such as blastic lesions note excluded. CXR with HH and HCT with cortical and cerebellar atrophy. He was discharged but has persistent symptoms. He went 05/14 for UGI with limitation but aspiration of barium and large HH, esophagus appears normal.
05/15 CXR stable. In reviewing with patient very routine with same breakfast and weight for years. He began with decrease amount of eating about 05/04 then had episode of now feeling well after shower on 05/06. Pt baseline weight was 171 for
years now down to 152lbs with inability to eat except ice cream and yogurt .
-nausea
-wt loss
-large HH
-CT with possible enteritis
-recent concern for aspiration with UGI
-expressive aphasia
-Gilbert's with chronic bili elevation
-chronic alk phos elevation -- CT with bony changes changes of comp fx, L2 hemagioma/bony lesion
-recent constipation with stool 05/15
-mild anemia
-low TSH
other medical problems:
AK with prior stent
pacer
HTN
inguinal hernia repair
PLAN:
etiology of nausea and wt loss relate to enteritis (? mild but limited CT without oral contrast), large HH, constipation as some improved appetite after stool vs other
pt now with appetite with hydration
reports and imaging reviewed
for speech eval if stable proceed with oral diet with recent concern for aspiration
if tolerating diet and no aspiration consider repeat CT with oral contrast for characterization of large HH vs EGD
monitor weight with wt loss
add GGT with chronic alk phos elevation - bone vs liver
cont Pepcid
add T4 with TSH <0.02
updated - retired RN at bedside
-
-
Thank you for consultation and allowing me to participate in the patient's care. Please call the concrete boom pump operator GI physician during the after hours with any questions or concerns.
[2023-05-17 06:58] VITALS: BP 137/65
[2023-05-17] MEDS: ASPIR LOW (ENTERIC COATED) 81 MG PO (09:42)
[2023-05-17] MEDS: ALTACE 10 MG PO (09:42)
[2023-05-17] MEDS: CELEXA 20 MG PO (09:42)
--- NOTE | 2023-05-17 10:10 | PTOTSP ---
Speech Therapy Swallowing Assessment
Patient with intermittent bovine coughing with thin liquid trials. Given known silent aspiration during recent upper GI series and current dysphonia that is risk factor for reduced airway protection, recommend VSE to objectively assess tolerance for
oral diet. Allow regular solids and thin liquids by single sips. Meds whole in applesauce. Diet modification and strategies (if needed) will be provided after VSE.
--- NOTE | 2023-05-17 10:34 | CM ---
Patient seen at bedside with also present. Patient indicated patient is aphasic with some ability to say yes or no but primarily uses a communication board. Patient indicated that she 'does the talking'. Patient lives with in
a 2 story home with no DME or past needs for VN services or SNF. Patient recently had eye surgery in last month per . Patient has been driving up to several years ago, indicated that patient is very independent prior to swallowing issues
and weakness. Patient PCP is Dr. Granda and he uses the [facility] on [facility]. Patient plan is to go home with patient, however she states that she needs to know 'why' he has had 19 lb weight loss. Patient for swallowing study today per
and nursing. CM will continue to follow for discharge planning needs.
Plan; home with VN vs outpatient therapy, pending assessments
--- NOTE | 2023-05-17 11:03 | W.PN.HOSP.TC ---
Addendum entered and electronically signed by Nora Mohan MD 05/17/23 13:53:
Hyperthyroidism noted, start methimazole 5 mg daily, recommend outpatient TSH and free T4 follow up in 4 to 6 weeks with PCP
Original Note:
Today's Communication/Plan
-
see A/P
Assessment / Plan
Assessment / Plan
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
prostatic hyperplasia, pacemaker who has had 20 pound weight loss over the past 3 weeks.� Patient's states that he is normally 171 to 172 pounds for the last 50 years.� Starting beginning of May, end of April, patient has not really been
eating well and started 'cutting back' on his food intake.� Whereas before he would eat a whole sandwich, then he started eating half.� He has progressed to the point where he is eating ice cream only as everything else makes him nauseous.� He has
not vomited.� Because of this he is also globally weak.� He has seen his primary care physician who ordered an upper GI series.� Patient aspirated on this and the study was limited.�
A/P :
# Weight loss/failure to thrive--unclear what is driving this--perhaps aspiration as upper GI did indicate that vs occult malignancy vs perhaps thyroid dysfunction--ADMIT
consulted GI
SPL noted silent aspiration, eval recc VSE,
Cont IV fluids--continue Pepcid--CAT scan of the abdomen pelvis was done on May 08 without significant issues, CAT scan of his brain was done May 08 which showed atophy
TSH < 0.02, follow FT4 level; vitamin B12 level at 577
Weakness--due to above--PT/OT
Essential hypertension --continue ramipril as able
Hyperlipidemia --continue toward statin as able
Benign prostatic hyperplasia--continue Flomax
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
DVT prophylaxis Lovenox SQ
CODE STATUS--full code
DW at bedside
Anticipated Discharge: 24 - 48 hours
Subjective/Interval History
-
Date of Service: May 17, 2023
Objective Data
-
Labs:
Laboratory Results
05/17/23
03:53
WBC 8.7
Hgb 12.1 L
Hct 35.6 L
Plt Count 305
Sodium 136
Potassium 3.9
Chloride 103
Carbon Dioxide 30
BUN 21 H
Creatinine 0.9
Glucose 90
Calcium 8.6
Total Bilirubin 1.0
AST 23
ALT 15
Alkaline Phosphatase 160 H
Vital Signs:
Vital Signs
Temp Pulse Resp BP Pulse Ox
36.8 C 85 16 137/65 97
05/17/23 06:58 05/17/23 09:42 05/17/23 06:58 05/17/23 09:42 05/17/23 10:34
I&O
05/16/23 05/17/23 05/18/23
06:59 06:59 06:59
Intake Total 320 / 320
Balance 320 / 320
Review of Systems
-
All other systems: Reviewed and negative
Physical Exam
-
General: Well Developed, No Apparent Distress, Comfortable, Conversant and Cachectic; Negative Respiratory Distress
HEENT: Normocephalic, Atraumatic, Nose Appears Normal and Ears Appear Normal; Negative Oxygen
Respiratory: Clear to Auscultation and Non Labored Respirations; Negative Accessory Resp Muscle Use
Cardiac: Regular Rhythm and S1/S2
GI: Soft, Nontender and Nondistended
Skin: Warm and Dry
Neuro: Awake
Psych: Calm and Intact Judgement/Insight (somewhat)
Data Reviewed
-
Labs: Labs Reviewed by
[2023-05-17 11:27] LABS: GGTP 20 U/L (15-73)
--- NOTE | 2023-05-17 13:35 | PTOTSP ---
Video Swallow Examination
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
ejecting. Esophagus was slow to empty with improved clearance following liquid wash.
Recommend
1. Remain on current diet of regular solids and thin liquids, Single sips of liquids
2. Meds whole in applesauce,
3. Sip of liquid after every 2-3 bites of food to assist with esophageal clearance.
4. Remain upright for at least 30 minutes after meals.
5. Clear mouth before taking any liquid
6. Patient may benefit from ST services to address airway protection techniques. Also recommended ST for speech/language/cognitive deficits.
7. Consider ENT consult given aphonia - ? OP basis given chronicity.
[2023-05-17] MEDS: PROTONIX 40 MG PO (14:08)
[2023-05-17 14:30] VITALS: BP 128/64; PULSE 84; O2SAT 95
[2023-05-17 15:01] VITALS: BP 113/67; BP 144/68; PULSE 85; O2SAT 97
[2023-05-17 15:03] VITALS: BP 144/68
[2023-05-17] MEDS: TAPAZOLE 5 MG PO (15:06)
[2023-05-17 15:22] VITALS: BMI 20.7
--- NOTE | 2023-05-17 15:57 | PTOTSP ---
pt currently demonstrates ability to complete simple ADLs, functional transfers, ambulation with supervision assistance. no acute OT needs identified at this time, will sign off.
[2023-05-17] MEDS: LOVENOX 40 MG SC (17:11)
[2023-05-17] MEDS: REMERON 15 MG PO (21:33)
[2023-05-17] MEDS: LIPITOR 20 MG PO (21:33)
[2023-05-17] MEDS: FLOMAX 0.400000000000000022 MG PO (21:33)
[2023-05-17] MEDS: VITAMIN D3 (cholecalciferol) 25 MCG PO (21:34)
[2023-05-17] MEDS: PEPCID 20 MG PO (21:34)
[2023-05-18 00:28] VITALS: BP 127/58
[2023-05-18] MEDS: NSS 1000 IV (03:08)
[2023-05-18 05:04] LABS: Hematocrit 37.5 % (39.0-52.0); Hemoglobin 12.6 g/dL (13.0-18.0); Mean Corp Hgb Conc. 33.6 g/dL (33.0-37.0); Mean Corpuscular Hgb 31.2 pg (27.0-31.0); Mean Corpuscular Volume 92.8 fL (80.0-94.0); Mean Platelet Volume 9.4 fL (7.4-10.4); Platelet Count 274 10^3/uL (130-400); Red Blood Cell Count 4.04 10^6/uL (4.70-6.10); Red Cell Dist. Width 11.2 % (11.5-14.5); White Blood Cell Count 7.9 10^3/uL (4.8-10.8)
[2023-05-18 05:29] LABS: Blood Urea Nitrogen 14 mg/dl (9-20); Calcium 8.8 mg/dl (8.4-10.2); Carbon Dioxide 29 mmol/L (22-30); Chloride 107 mmol/L (98-107); Estimated Creatinine Clearance 57 ml/min; Glucose 95 mg/dl (70-99); eGFR > 60.00
[2023-05-18 05:36] LABS: Sodium 138 mmol/L (135-145)
[2023-05-18 07:29] VITALS: BP 127/63
[2023-05-18] MEDS: PROTONIX 40 MG PO (08:36)
[2023-05-18] MEDS: TAPAZOLE 5 MG PO (08:36)
[2023-05-18] MEDS: ALTACE 10 MG PO (08:36)
[2023-05-18] MEDS: ASPIR LOW (ENTERIC COATED) 81 MG PO (08:36)
--- NOTE | 2023-05-18 09:35 | W.PN.HOSP.TC ---
Addendum entered and electronically signed by Faith Mclain MD 05/18/23 12:30:
As per RD note, Severe protein calorie malnutrition�- Unintentional weight loss >5% in 1 month- Nutrient intake </=50% estimated energy needs, for >/= 1 month- Loss of fat over orbital and rib cage�- Loss of muscle over temporal, clavicle and calf
Original Note:
Today's Communication/Plan
-
d/c
Assessment / Plan
Assessment / Plan
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
prostatic hyperplasia, pacemaker who has had 20 pound weight loss over the past 3 weeks.� Patient's states that he is normally 171 to 172 pounds for the last 50 years.� Starting beginning of May, end of April, patient has not really been
eating well and started 'cutting back' on his food intake.� Whereas before he would eat a whole sandwich, then he started eating half.� He has progressed to the point where he is eating ice cream only as everything else makes him nauseous.� He has
not vomited.� Because of this he is also globally weak.� He has seen his primary care physician who ordered an upper GI series.� Patient aspirated on this and the study was limited.�
Weight loss/failure to thrive--unclear what is driving this--perhaps aspiration as upper GI did indicate that vs occult malignancy vs perhaps thyroid dysfunction--ADMIT
consulted GI--SPL noted silent aspiration, eval rec VSE--passed--stop IV fluids--continue Pepcid--CAT scan of the abdomen pelvis was done on May 08 without significant issues, CAT scan of his brain was done May 08 which showed atophy--TSH < 0.02,
follow FT4 level; vitamin B12 level at 577
Weakness--due to above--PT/OT
Essential hypertension --continue ramipril as able
Hyperlipidemia --continue toward statin as able
Benign prostatic hyperplasia--continue Flomax
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
DVT prophylaxis Lovenox SQ
CODE STATUS--full code
OK for d/c
Anticipated Discharge: Today
Subjective/Interval History
-
Date of Service: May 18, 2023
pt eating well
ready for d/c
Objective Data
-
Labs:
Laboratory Results
05/18/23
04:36
WBC 7.9
Hgb 12.6 L
Hct 37.5 L
Plt Count 274
Sodium 138
Potassium 4.0
Chloride 107
Carbon Dioxide 29
BUN 14
Creatinine 0.9
Glucose 95
Calcium 8.8
Vital Signs:
max temp for 24 hours
05/17/23
15:03
Temp 98.1 F
Vital Signs
Temp Pulse Resp BP Pulse Ox
99.9 F 86 18 127/63 97
05/18/23 07:29 05/18/23 08:36 05/18/23 07:29 05/18/23 08:36 05/18/23 07:29
I&O
05/17/23 05/18/23 05/19/23
06:59 06:59 06:59
Intake Total 320 / 320 960 / 960
Balance 320 / 320 960 / 960
Review of Systems
-
All other systems: Reviewed and negative
Physical Exam
-
General: Well Developed, Well Nourished and Appears Chronically Ill
HEENT: Normocephalic and Atraumatic; Negative Oxygen
Respiratory: Clear to Auscultation; Negative Wheezes or Rhonchi
Cardiac: Regular Rhythm, S1/S2, Murmur and Tachycardic
GI: Soft, Nontender, Nondistended and Normal Bowel Sounds
Musculoskeletal: No Clubbing, No Cyanosis and No Edema
Neuro: Other (expressive aphasia)
Psych: Calm
[2023-05-18] MEDS: FLUZONE HIGH-DOSE QUAD 2023-24 0.699999999999999956 ML IM (09:57)
--- NOTE | 2023-05-18 10:56 | PN.CDI ---
CDI
- -
CDI:
Physician Documentation Request
Admit Date: 05/16/23 18:44
Dear Doctor Rayne,
Please review the following and provide your response in the progress notes.
Clinical Indicators:
- 05/16 Multi Care Technician note indicates Severe protein calorie malnutrition
- Unintentional weight loss >5% in 1 month
- Nutrient intake </=50% estimated energy needs, for >/= 1 month
- Loss of fat over orbital and rib cage
- Loss of muscle over temporal, clavicle and calf
Based on the information, which of the following most accurately represents the patient's nutritional status?
Severe protein calorie malnutrition
Other
[place] Criteria ([facility] Hospitalist 2017)
2 or more criteria must be present for either
non severe or severe malnutrition
Note that the criteria differs related to the
presence of an acute or chronic illness
Acute Illness Chronic Illness
Energy Intake Non Severe: <75% for >7 days Non Severe: <75% for >1 month
Severe: <50% for >5 days Severe: <75% for >1 month
Weight Loss Non Severe: 1-2% over 1 week Non Severe: 5% over 1 month
5% over 1 month 7.5% over 3 months
7.5% over 3 months 10% over 6 months
1 year N/A 20% over 1 year
Severe: >2% over 1 week Severe: >5% over 1 month
>5% over 1 month >7.5% over 3 months
>7.5% over 3 months >10% over 6 months
1 year N/A >20% over 1 year
Body Fat Non Severe: Mild Decrease Non Severe: Mild Loss
Severe: Moderate Decrease Severe: Severe Loss
Muscle Mass Non Severe: Mild Decrease Non Severe: Mild Loss
Severe: Moderate Decrease Severe: Severe Loss
Fluid Accumulation Non Severe: Mild Accumulation Non Severe: Mild Accumulation
Severe: Moderate to severe Severe: Moderate to severe
accumulation accumulation
Reduced Building Inspection Engineer Strength Non Severe: N/A Non Severe: N/A
Severe: Measurably reduced Severe: Measurably reduced
Additional criteria that can be used to Determine if Mild or Moderate Malnutrition ([employer] Manual 2018)
Mild Moderate Severe
Albumin gm/dl <3.0 gm/dl <2.5 gm/dl <2.0 gm/dl
Pre Albumin mg/dl <15 gm/dl <10 mg/dl <5.0 mg/dl
BMI <18.5 <17 <16
Use of terms such as suspected, likely, concern for, or probable (associated with a specific diagnosis that is being evaluated, monitored, or treated as if it exists) are acceptable and can be coded in the inpatient setting, when documented at the
time of discharge.
Thank you,
Lazaro Montalvo RN
CDI Specialist
Please use your independent medical judgment in providing your response.
--- NOTE | 2023-05-18 12:48 | W.DCSUMMARY ---
Discharge Summary
Discharge Data
Date of Admission: 05/16/23
Date of Discharge: 05/18/23
-
Pending Results: No
Hospital Course
Primary care physician : Ghanshyam Granda
Principal Discharge diagnosis : Weight loss/failure to thrive due to newly diagnosed hyperthyroidism
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 He has a 20 pound weight loss over the past 3 weeks. Patient's states that he normally weighs
171 to 172 pounds without variation for the last 50 years. Since the beginning of May, patient had really not been eating well and started 'cutting back on his food intake (eating half a sandwich instead of a full sandwich). He has progressed to
the point where he is eating only ice cream because everything else makes him nauseous. He has not vomited. He is also globally weak. He did see his primary care physician who ordered an upper GI series. Patient aspirated and the study was
limited. Patient was admitted.
Problem #1: Weight loss/failure to thrive due to newly diagnosed hypothyroidism. Initial etiologies for this were aspiration, occult malignancy and thyroid dysfunction. GI was consulted. Speech eval noted silent aspiration but the patient did
pass his video swallow. He does have a hiatal hernia and GI did recommend adding Protonix in the morning and continue his Pepcid at night. TSH was checked which was less than 0.02 with a free T4 of 16. He was started on methimazole 5 mg daily.
He should follow-up with his primary care physician and have repeat thyroid numbers checked in 3 to 4 weeks. He may also need a consultation to endocrine but we will defer that to his primary care physician. Vitamin B12 level was within normal
limits. CAT scan done on May 08 of his abdomen and pelvis was without any significant issues. Of note, Cymbalta was also stopped in favor of changing to Remeron. Cymbalta certainly could have had issues with nausea causing some of the diet
changes.
Problem #2: All other medical issues. 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 These
medical issues were stable during his hospitalization. Medications were continued as able.
Patient is stable for discharge home at this time. If there are any questions regarding this dictation or his hospital stay, please not hesitate to call. Our office number is [phone].
Procedure findings :
VIDEO SWALLOW EVAL:
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
ejecting. Esophagus was slow to empty with improved clearance following liquid wash.
Recommend
1. Remain on current diet of regular solids and thin liquids, Single sips of liquids
2. Meds whole in applesauce,
3. Sip of liquid after every 2-3 bites of food to assist with esophageal clearance.
4. Remain upright for at least 30 minutes after meals.
5. Clear mouth before taking any liquid
6. Patient may benefit from ST services to address airway protection techniques. Also recommended ST for speech/language/cognitive deficits.
7. Consider ENT consult given aphonia - ? OP basis given chronicity.
Discharge Plan
-
Patient Disposition: Home (Routine Discharge)
Discharge Diagnosis/Procedures: Weight loss/failure to thrive, hypothyroidism, global weakness, essential hypertension, hyperlipidemia, benign prostatic hyperplasia, history of expressive aphasia with transient global amnesia x 2 in past
Condition: Good
Diet: As tolerated and Regular
Activity: As tolerated
Driving Restrictions: As prior to admission
Bathing Restrictions: None
Blood Work: TSH and free T4 in 4 to 6 weeks with PCP
Referrals:
Ghanshyam Granda MD [Family Provider] - in less than 1 week
Mena López DO [Active] - (follow up with [facility] 1 month )
Prescriptions:
New
mirtazapine 15 mg Tablet
15 mg PO HS Qty: 30 0RF
pantoprazole 40 mg Tablet,Delayed Release (Dr/Ec)
40 mg PO DAILY Qty: 30 0RF
Rx Instructions:
take in the morning
methimazole 5 mg Tablet
5 mg PO DAILY Qty: 60 0RF
Continued
aspirin 81 MG tablet,delayed release (DR/EC)
81 mg PO DAILY
ramipril 10 MG capsule
10 mg PO DAILY
atorvastatin 20 MG tablet
20 mg PO HS
famotidine 20 MG tablet
20 mg PO HS
cholecalciferol (vitamin D3) 1,000 UNITS tablet
1,000 units PO HS
tamsulosin [Flomax] 0.4 mg Capsule
0.4 mg PO HS
Discontinued
citalopram [Celexa] 20 mg Tablet
20 mg PO DAILY
Discharge Orders:
Discharge Patient (As Directed); Ordered 05/18/23
Ordered By: Faith Mclain
Discharge Date and Time
Discharge Date/Time: 05/18/23 11:46
--- NOTE | 2023-05-18 13:45 | CM ---
Patient has been medically cleared for discharge to home with no additional skilled services. Patient and do not feel the need for in home HH. will transport home.
== END 2023-05-18 11:46 | disposition home or self-care (01) | DRG 643 ==
LOC: 2 NORTH 18:44
PROVIDERS: Internal Medicine; Nurse Practitioner; ADMITTING PHYSICIAN Internal Medicine; CONSULT PHYSICIAN Internal Medicine; EMERGENCY PHYSICIAN Emergency Medicine; FAMILY PHYSICIAN Family Medicine
DX: E05.90 Thyrotoxicosis, unspecified without thyrotoxic crisis or storm (principal); E43 Unspecified severe protein-calorie malnutrition; R47.01 Aphasia; R62.7 Adult failure to thrive; E03.9 Hypothyroidism, unspecified; I10 Essential (primary) hypertension; N40.0 Benign prostatic hyperplasia without lower urinary tract symptoms; Z68.20 Body mass index [BMI] 20.0-20.9, adult; Z79.82 Long term (current) use of aspirin
CPT/HCPCS: 71046; 74230; 80048; 80053; 81003; 81015; 82607; 82977; 83690; 83735; 84436; 84443; 85025; 85027; 87070; 90662; 92610; 92611; 93005; 96360; 97162; 97165; 99285; G0008

== ENCOUNTER 2023-11-24 10:32 | Emergency (ER) | payer OTHER, SELFPAY ==
[2023-11-24 10:41] VITALS: BP 150/82
[2023-11-24 11:00] VITALS: BP 144/85
[2023-11-24 12:00] VITALS: BP 141/74
[2023-11-24 12:24] VITALS: BP 149/79
[2023-11-24 12:26] LABS: % Basophils 0.2 % (0-2); % Eosinophils 0.4 % (0-6); % Immature Granulocytes 0.4 % (0-0.5); % Lymphocytes 7.9 % (20.5-51.1); % Monocytes 5.7 % (1.7-9.3); % Neutrophils 85.4 % (42.2-75.2); Absolute Lymphocytes 0.9 10^3/uL (1.2-3.4); Absolute Monocytes 0.6 10^3/uL (0.1-0.6); Absolute Neutrophils 9.3 10^3/uL (1.4-6.5); Hematocrit 39.8 % (39.0-52.0); Hemoglobin 13.4 g/dL (13.0-18.0); Mean Corp Hgb Conc. 33.7 g/dL (33.0-37.0); Mean Platelet Volume 9.2 fL (7.4-10.4); Nucleated Red Blood Cells % 0 % (-); Platelet Count 206 10^3/uL (130-400); Red Blood Cell Count 4.19 10^6/uL (4.70-6.10); Red Cell Dist. Width 12.5 % (11.5-14.5); White Blood Cell Count 10.9 10^3/uL (4.8-10.8)
[2023-11-24 12:44] LABS: ALT (SGPT) 20 U/L (0-50); AST (SGOT) 34 U/L (17-59); Alkaline Phosphatase 219 U/L (38-126); Blood Urea Nitrogen 24 mg/dl (9-20); Calcium 9.1 mg/dl (8.4-10.2); Carbon Dioxide 27 mmol/L (22-30); Chloride 101 mmol/L (98-107); Glucose 132 mg/dl (70-99); Potassium 4.2 mmol/L (3.5-5.1); Sodium 137 mmol/L (135-145); Total Bilirubin 2.3 mg/dl (0.2-1.3); Total Protein 6.4 g/dl (6.3-8.2); eGFR > 60.00
[2023-11-24 12:49] LABS: Urine Albumin Negative (Neg - Trace); Urine Bilirubin Negative (Negative); Urine Character Clear (Clear); Urine Color Yellow; Urine Glucose Negative (Negative); Urine Ketone Trace (Negative); Urine Leukocyte Negative (Negative); Urine Nitrite Negative (Negative); Urine Occult Blood Trace (Negative); Urine Specific Gravity 1.015 (<1.030); Urine Urobilinogen Negative (Neg - 1+)
[2023-11-24 12:59] LABS: Urine Bacteria Few (Negative); Urine White Cell 0-2 /HPF (0-5)
[2023-11-24 13:00] VITALS: BP 139/64
--- NOTE | 2023-11-24 13:07 | ED.GENMED ---
History of Present Illness
General
Chief Complaint: Fall
Source: spouse
Exam Limitations: non verbal-adult
Time Seen by Provider: 11/24/23 11:27
Nursing documentation reviewed up to this point in time: agreed with
History of Present Illness
History of Present Illness:
pt is a88 yo M with h/o TGA, apraxia, expressive aphasia
primary historian is
she says this morning she left to walk the dog and when she returned he was standing and holding a bloody wash cloth and he isn't able to tell her what happened. he normally can write things down when he doesn't ocmmunicate
but she says he gets attacks of this TGA and hwne he does, he doesn't remember things
he didn't remember his dog's name after she came home and he also didn't recall they were going to [place] to sell his truck
she says this is what happens to him after he has 'episodes of TGA'
she thinks he missed the bottom step int he basement which was carpteted and hit head on the wall
he felt nauesated but that passed
no vomiting
no abdominal pain
no neck pain
no weakness
no thinners
Past History
Past History
ED Past Medical History: HTN, Hypercholesterolemia, AL and Other (Chronic expressive aphasia)
ED Past Surgical History: Cardiac (Stent X1)
Social History
Tobacco: Non-smoker
Alcohol: Occasional
Drug: None
Personal:
Living: with family
Review of Systems
Review of Systems
Allergies reviewed?: Yes
Unable to obtain full review of systems at this time due to: other (TGA, expressive aphasia)
Other source history: family
All Other Systems: Not applicable
Phy Exam
Physical Exam
Physical Exam:
GENERAL: Alert , in no apparent distress
HEAD: NC
abrasion top of scalp
NECK: no midline tenderness, active ROM intact, no paraspinal muscle tenderness;
EYE: pupils equal and reactive, EOMs intact.
ENT: o/p clr, mmm. no hemotympanum
dried blood outside L nostril
no evidence of facial injury
CARDIAC: Regular rate and rhythm, no edema
LUNGS: Clear breath sounds bilaterally, no acute respiratory distress, no wheezes/rales/rhonchi
ABDOMEN: Soft, without focal tenderness, no r/g, no cvat
NEUROLOGICAL: Alert and oriented x 1 which is his baseline, he doesn't speak much; says 'yes' or 'no', no focal neuro deficits, CN intact, 5/5 strength, sensation intact
SKIN: Warm and dry, abrasion top of scalp
MUSCULOSKELETAL: No edema, well perfused.
PSYCH: Normal and appropriate interaction.
Course
Orders/Labs/Results
Orders:
Orders
11/24/23 10:[address] [CT Head W/o Iv Contrast] Urgent
Comment:
Reason For Exam: fall
11/24/23 10:46
Electrocardiogram (*1) Urgent
Reason for Study: Vertigo / Dizzy
EKG- Treatment ONCE
11/24/23 11:52
pacemaker [Interrogate Pacemaker- Treatment] ONCE
11/24/23 12:07
Complete Blood Count/With Diff Urgent
Comprehensive Metabolic Panel Urgent
TSH Reflex To Free T4 Urgent
11/24/23 12:16
Troponin I Urgent
Urinalysis Reflex To Culture Urgent
Date Specimen was Collected: 11/24/23
Time Specimen was Collected: 12:15
Urine Microscopic Reflex Cult Urgent
Abnormal Lab Results
11/24/23 11/24/23
12:07 12:16
WBC 10.9 H 10^3/uL
(4.8-10.8)
RBC 4.19 L 10^6/uL
(4.70-6.10)
MCV 95.0 H fL
(80.0-94.0)
MCH 32.0 H pg
(27.0-31.0)
Absolute Neuts (auto) 9.3 H 10^3/uL
(1.4-6.5)
Absolute Lymphs (auto) 0.9 L 10^3/uL
(1.2-3.4)
Neutrophils % 85.4 H %
(42.2-75.2)
Lymphocytes % 7.9 L %
(20.5-51.1)
BUN 24 H mg/dl
(9-20)
Glucose 132 H mg/dl
(70-99)
Total Bilirubin 2.3 H mg/dl
(0.2-1.3)
Alkaline Phosphatase 219 H U/L
(38-126)
Urine Ketones Trace A
(Negative)
Ur Occult Blood Reflex Trace A
(Negative)
Urine RBC 3-6 A /HPF
(0-2)
Urine Bacteria (Reflex) Few A
(Negative)
11/24/23 12:07
11/24/23 12:07
Vital Signs
Initial and Last Documented VS:
Initial Vital Signs
Temp Pulse Resp BP Pulse Ox
97.9 F 78 18 150/82 95
11/24/23 10:41 11/24/23 10:41 11/24/23 10:41 11/24/23 10:41 11/24/23 10:41
Last Documented Vital Signs
Temp Pulse Resp BP Pulse Ox
97.9 F 84 14 120/45 91
11/24/23 10:41 11/24/23 14:00 11/24/23 14:00 11/24/23 14:00 11/24/23 14:00
MDM/Problems Addressed
Differential Diagnosis Includes:
fall, head injury, abrasion, concussion, ICH, syncope
MDM/Problems Addressed:
88 y/o M
difficult history due to his expressive aphasia
also with episodes of TGA, seems to be usually when under stress
here after untwitnessed episode where pt likely fell and hit head, has aabraion top of scalp
is mostly at his baseline where he says 'yes' iniitally when asked any qustion and then change answer to 'no' but was a little confused initialy that resolved
he cannot express what happened but based on the appearance of where there was a little bit of blood she thinks that he probably hit his head on the wall at the bottom step. It carpeted. He is not anticoagulated. On exam he has an abrasion at the
top of his head and had a little bit of dried blood within his nose but does not look like it came from his nose. He is really no complaints. I know him from previous ED visit and this is his baseline. It is very hard to get a history and even a
reliable exam but this is very similar to his previous visit where I was able to discharge him home. Patient's workup here shows no signs of intracranial hemorrhage or fracture, his labs show a mild BUN elevation which is actually chronic and
unchanged. His hemoglobin is normal. 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 bili is higher than his level today of 2.3. His urine had a trace amount of urine
red cells and few bacteria but he has no symptoms. I suspect he likely had a mechanical fall and given that he returned to baseline and is well-appearing, and after discussing with his it seems like she is comfortable taking him home not the
best plan for him. Discharge
*Critical Care Note
Total Time (30-74mins, 75-104mins- exclusive of procedures): Not Applicable
ED Attending Note
-
Portions of this chart may have been created with voice recognition software.� Occasional wrong word or��sound alike� substitutions may have occurred due to the inherent limitations of voice recognition software.
Discharge Plan
Departure
Patient Disposition: Home (Routine Discharge)
Date of Disposition: 11/24/23
Time of Disposition: 14:09
Patient with high blood pressure during this ER visit?: No
Condition: Fair
Covid-19: Not Applicable
Discharge Problem:
Minor head injury, Abrasion, Elevated liver enzymes
Instructions: Head Injury in Adults (DC), Skin Abrasions (DC)
Prescriptions:
No Action
aspirin 81 MG tablet,delayed release (DR/EC)
81 mg PO DAILY
ramipril 10 MG capsule
10 mg PO DAILY
atorvastatin 20 MG tablet
20 mg PO HS
famotidine 20 MG tablet
20 mg PO HS
cholecalciferol (vitamin D3) 1,000 UNITS tablet
1,000 units PO HS
tamsulosin [Flomax] 0.4 mg Capsule
0.4 mg PO HS
mirtazapine 15 mg Tablet
15 mg PO HS Qty: 30 0RF
pantoprazole 40 mg Tablet,Delayed Release (Dr/Ec)
40 mg PO DAILY Qty: 30 0RF
Rx Instructions:
take in the morning
methimazole 5 mg Tablet
5 mg PO DAILY Qty: 60 0RF
Referrals:
Ghanshyam Granda MD [Family Provider] - Follow up in 2-3 days
Activity Restrictions/Additional Instructions:
Esteban's workup here does not show any signs of significant injuries, his urine did have a little bit of blood in it but we will wait to see what the culture grows out. Also his liver markers were slightly elevated but he has had this in the past.
Make sure someone's around to watch him over the next 12 to 24 hours to be sure he does not have any other episodes but his pacemaker interrogation did not show any signs of dysrhythmia or any pauses.
He may have a minor concussion which you can treat with brain rest over the next 12 to 24 hours limiting cell phone, TV, reading etc. Follow-up with the family doctor regarding the blood work in the urine. Return for any concerns
Interventions
Interventions:
*Risk Screen - Suicide Last Done: 11/24/23 10:41
*General Assessment Last Done: 11/24/23 10:41
*Neglect/Abuse Screening Last Done: 11/24/23 10:41
ED- Fall Risk Assessment Last Done: 11/24/23 11:04
*Nursing Disposition Last Done: 11/24/23 14:15
ED-Musculoskeletal Assessment Last Done: 11/24/23 11:04
ED- Neurological Assessment Last Done: 11/24/23 11:04
ED-Skin Assessment Last Done: 11/24/23 11:04
Discharge Date and Time
Discharge Date/Time: 11/24/23 14:17
Print Language: [id number]
[2023-11-24 13:11] LABS: Troponin I < 0.012 ng/ml
[2023-11-24 13:16] LABS: TSH Reflex To Free T4 2.73 uIU/ml (0.47-4.68)
[2023-11-24 14:00] VITALS: BP 120/45
== END 2023-11-24 14:17 | disposition home or self-care (01) ==
LOC: EMR 10:32
PROVIDERS: Physician Assistant; EMERGENCY PHYSICIAN Emergency Medicine; FAMILY PHYSICIAN Family Medicine
DX: S09.90XA Unspecified injury of head, initial encounter (principal); S00.01XA Abrasion of scalp, initial encounter; W19.XXXA Unspecified fall, initial encounter; R74.8 Abnormal levels of other serum enzymes; Z95.0 Presence of cardiac pacemaker
CPT/HCPCS: 99285; 93288; 70450; 80053; 81003; 81015; 84443; 84484; 85025; 93005

== ENCOUNTER → 2024-01-30 11:23 | Outpatient (REF) | payer OTHER, SELFPAY | LOC: HWRAD 11:23 | PROVIDERS: ATTENDING PHYSICIAN Physician Assistant; FAMILY PHYSICIAN Physician Assistant | DX: E05.90 Thyrotoxicosis, unspecified without thyrotoxic crisis or storm (principal) | CPT/HCPCS: 76536 ==

== ENCOUNTER → 2024-03-20 14:52 | Outpatient (REF) | payer OTHER, SELFPAY | LOC: HWRCS 14:52 | PROVIDERS: ATTENDING PHYSICIAN Nurse Practitioner; FAMILY PHYSICIAN Physician Assistant | DX: I95.1 Orthostatic hypotension (principal) | CPT/HCPCS: 93306 ==